=== PATIENT | male | born 1960 | race Caucasian/White ===

== ENCOUNTER → 2018-10-21 10:45 | Day surgery (SDC) | payer BC ==
--- NOTE | 2018-10-19 01:51 | HP ---
CC: Dr. Des Williamson * HISTORY AND PHYSICAL: DATE OF PLANNED ADMISSION AND SURGERY: 10/21/18. HISTORY OF PRESENT ILLNESS: Mr. Chavez is a 58-year-old white male, who is admitted with a distal left ureteral calculus for cystoscopy, left ureteroscopy , laser lithotripsy, and left ureteral stent insertion. Mr. Chavez is a known stone former and had the passed ureteral calculi spontaneously in the past. He presented to my office 3-1/2 months ago with symptoms of left renal colic. At that time, office renal ultrasound showed no renal calculi, but there was mild left hydroureteronephrosis. The diagnosis was left renal colic secondary to a small ureteral calculus. It was decided to manage him conservatively and was he placed on alpha-blockers and increased fluid intake. The patient has been having recurrent episodes of left flank pain. He called the office on 10/17/18 reporting an acute episode of left renal colic. There was no associated fever or chills and no voiding symptoms. Noncontrast CT of the abdomen and pelvis showed mild left hydroureteronephrosis and a 5- mm calculus at the left ureterovesical junction. Past history is relevant for PSA elevation for which he underwent prostate biopsies in 2006, showing prostatitis but no malignancy. Since that time, his PSA has been down and stable with the last value 5 months ago at 2.6. His prostate on rectal exam continues to feel benign. PAST MEDICAL HISTORY AND SYSTEM REVIEW: He is healthy and physically fit and active. He is on Lipitor 20 mg daily and on 1 baby aspirin per day. He denies any cardiac or pulmonary diseases or symptoms. ALLERGIES: He denies any allergies to medications. He reports that VICODIN gives him nausea. PERSONAL HISTORY: He works in construction. He is a non-smoker. FAMILY HISTORY: Relevant for his father who was treated for prostate carcinoma. PHYSICAL EXAMINATION GENERAL: Pleasant, healthy, and fit-looking white male. VITAL SIGNS: Blood pressure 140/90, pulse of 70. LUNGS: Clear. HEART: Regular and rhythmic. No murmurs. ABDOMEN: Soft. No masses. No tenderness. Mild left CVA tenderness. RECTAL EXAM: Had shown a slightly enlarged, but non-suspicious prostate. IMPRESSION: Recurrent episodes of left flank pain that started 3-1/2 months ago , with a 5-mm calculus in the distal left ureter associated with mild left hydronephrosis. PLAN: Considering that the duration of the symptoms, it is unlikely that the stone will pass spontaneously. I gave the patient the option of continued conservative management with alpha- blockers and pain medications versus proceeding with endoscopic stone extraction. The patient feels that the condition has dragged for too long, and he wants to have definitive treatment. The plan therefore is to proceed with cystoscopy, left ureteroscopy, laser lithotripsy, and left ureteral stent placement. I discussed the above plans in detail with the patient. In the interim, he is going to be straining his urine very carefully and if the stone passes to let my office know. [id number] #: [id number] BRANDI
[~2018-10-21 10:45] MED LIST: Acetaminophen TAB* 325 MG PO PRN; Buffered Lidocaine 0.9% SYRIN* 5 ML/SYR SYRINGE INTRADERM ONE; Buffered Lidocaine 0.9% SYRIN* 5 ML/SYR SYRINGE ONE; Dexamethasone IV* 4 MG/ML 1 ML (4 MG) ONE; DiMENhydriNATE IV* 50 MG/ML VIAL IV PUSH PRN; Famotidine IV* 10 MG/ML 2 ML (20 mg) IV ONE; Famotidine IV* 10 MG/ML 2 ML (20 mg) ONE; HYDROmorphone INJ1* 1 MG/ML SYRINGE IV PRN; Ketorolac INJ* 30 MG/ML 1 ML VIAL ONE; Labetalol IV* 5 MG/ML 20 ML VIAL IV PUSH ONE; Labetalol IV* 5 MG/ML 20 ML VIAL ONE; Lidocaine 2% PF * 5 ML VIAL ONE; Midazolam* 1 MG/ML 5 ML VIAL (5 MG) ONE; Naloxone* 0.4 MG/ML 1 ML VIAL IV PRN; Ondansetron INJ* 2 MG/ML VIAL ONE; Propofol* 10 MG/ML 20 ML BTL ONE; cefTRIAXone(*) 2 GM ADDV.VIAL IVPB ONE; fentaNYL* 50 MCG/ML 2 ML VIAL (100 MCG VIAL) ONE; oxyCODONE TAB* 5 MG TAB PO PRN
[2018-10-21 14:10] VITALS: BP 149/91
--- NOTE | 2018-10-22 10:30 | OP ---
CC: Dr. Des Williamson * DATE OF OPERATION: 10/21/18 - [facility] DATE OF : 56. SURGEON: Salty Crandall M.D. PRE-OP DIAGNOSIS: Distal left ureteral calculus. POST-OP DIAGNOSIS: Distal left ureteral calculus. OPERATIVE PROCEDURE: 1. Cystoscopy. 2. Left ureteroscopy and extraction of distal left ureteral calculus (5 to 6 mm ). 3. Left retrograde pyelography and placement of left ureteral stent (6-Latvian). INDICATIONS FOR PROCEDURE: Mr. Chavez is a 58-year-old white male, who presented 3-1/2 months ago with an episode of left renal colic and was noted on office renal ultrasound, to have mild left hydronephrosis. The calculus was not visualized. Because it was assumed that the stone was small, he was managed conservatively. He continued to have on and off episodes of left flank pain. Because of the persistent symptoms, he had a recent CT of the abdomen and pelvis, which showed a 5- mm calculus in the distal left ureter with mild left hydronephrosis. Because of the duration of the patient's symptoms and the fact that it had not passed in 3-1/2 months, and because of the on and off episodes of flank pain, the patient was offered the option of endoscopic stone extraction and he decided to proceed with it. PATHOLOGY AT CYSTOSCOPY: There was a mild meatal stenosis that had to be dilated to introduce the cystoscope. The rest of the urethra looked normal. The prostatic urethra measured about 2.5 cm in length and there was minimal obstruction by the prostate. Examination of the bladder showed normal ureteral orifices. The bladder wall looked normal. There were no suspicious bladder lesions seen. Upon left ureteroscopy, a 5- to 6-mm calculus was noted in the distal left ureter just proximal to the intramural portion of the ureter. The calculus had the gross appearance of a calcium oxalate stone. The calculus had irregular surface, and when engaged with the basket it fragmented into several pieces. Left retrograde pyelography showed no hydronephrosis. DESCRIPTION OF PROCEDURE: After successful general anesthesia, the patient was placed in the lithotomy position and was prepped and draped for a cystoscopy. The urethral meatus and the fossae navicularis had to be gently dilated to allow the introduction of the 22-Latvian cystoscope. The whole urethra was inspected. The bladder was entered and inspected, and the above findings were noted. A Flexible-tip hybrid wire was then introduced into the left orifice and positioned in the area of the renal pelvis. A size 6.5 semi-rigid ureteroscope was then introduced inside the bladder under direct vision. A flexible-tip basket was introduced inside the port of the ureteroscope and its flexible tip was then passed inside the left ureter along side the guidewire. That allowed the atraumatic introduction of the ureteroscope inside the ureter. The calculus was identified. It was engaged in the basket and it broke into several pieces. The stone fragments were then all extracted and the larger one was sent for stone analysis. A left retrograde pyelography was then performed. A size 6-Latvian stent was then placed with a proximal end coiling in the renal pelvis and the distal end coiling inside the bladder. The patient tolerated the procedure well and left the operating room in good condition. The plan is to leave the stent in place for 7 to 10 days. It will be removed in the office under local anesthesia. [id number]/CPS #: [id number] MTDKim
== END | disposition home or self-care (01) ==
LOC: OR 10:45
PROVIDERS: ATTEND Urology
DX: N13.2 Hydronephrosis with renal and ureteral calculous obstruction (principal); E78.5 Hyperlipidemia, unspecified; R03.0 Elevated blood-pressure reading, without diagnosis of hypertension
CPT/HCPCS: 74420; 82365; 88300; C1876; J0696; J1100; J1885; J2250; J2405; J2704; J3010

== ENCOUNTER 2019-09-04 07:56 | Day surgery (SDC) | payer BC ==
[~2019-09-04 07:56] MED LIST changes: -Acetaminophen TAB* 325 MG PO PRN; -Buffered Lidocaine 0.9% SYRIN* 5 ML/SYR SYRINGE INTRADERM ONE; -Buffered Lidocaine 0.9% SYRIN* 5 ML/SYR SYRINGE ONE; +Buffered Lidocaine 1% SYRIN* 1 ML/SYRINGE INTRADERM ONE; +Dexamethasone IV* 4 MG/ML 1 ML (4 MG) IV SLOW PU ONE; -DiMENhydriNATE IV* 50 MG/ML VIAL IV PUSH PRN; -HYDROmorphone INJ1* 1 MG/ML SYRINGE IV PRN; -Ketorolac INJ* 30 MG/ML 1 ML VIAL ONE; -Labetalol IV* 5 MG/ML 20 ML VIAL IV PUSH ONE; -Labetalol IV* 5 MG/ML 20 ML VIAL ONE; +Lactated Ringers 1000 ML Bag* 1,000 ML IV SCH; -Lidocaine 2% PF * 5 ML VIAL ONE; -Midazolam* 1 MG/ML 5 ML VIAL (5 MG) ONE; -Naloxone* 0.4 MG/ML 1 ML VIAL IV PRN; -Ondansetron INJ* 2 MG/ML VIAL ONE; -Propofol* 10 MG/ML 20 ML BTL ONE; -cefTRIAXone(*) 2 GM ADDV.VIAL IVPB ONE; -fentaNYL* 50 MCG/ML 2 ML VIAL (100 MCG VIAL) ONE; -oxyCODONE TAB* 5 MG TAB PO PRN
[2019-09-04] MEDS ORDERED: ceFAZolin 2 GM PREMIX in ORs 2 GM/50 ML BAG ONE (08:13)
[2019-09-04] MEDS ORDERED: ROPIVACAINE 5 MG/ML 30 ML BTL (0.5%) ONE (09:39)
[2019-09-04] MEDS ORDERED: fentaNYL* 50 MCG/ML 5 ML VIAL (250 MCG VIAL) ONE (09:49)
[2019-09-04] MEDS ORDERED: Midazolam* 1 MG/ML 5 ML VIAL (5 MG) ONE (09:49)
[2019-09-04] MEDS ORDERED: Atracurium* 10 MG/ML 10 ML VIAL ONE (09:49)
[2019-09-04] MEDS ORDERED: Propofol* 10 MG/ML 20 ML BTL ONE (09:50)
[2019-09-04] MEDS ORDERED: Ondansetron INJ* 2 MG/ML VIAL ONE (09:50)
[2019-09-04] MEDS ORDERED: Lidocaine 2% PF * 5 ML VIAL ONE (09:50)
[2019-09-04] MEDS ORDERED: Bupivacaine 0.25% SDV* 30 ML ONE (09:55)
[2019-09-04] MEDS ORDERED: methylPREDNISolone ACETATE 80* 80 MG/ML 1 ML VIAL ONE (09:55)
[2019-09-04] MEDS ORDERED: HYDROmorphone INJ1* 1 MG/ML SYRINGE IV PRN (10:37)
[2019-09-04] MEDS ORDERED: Scopolamine 1.5 mg* PATCH TRANSDERM PRN (10:37)
[2019-09-04] MEDS ORDERED: Naloxone* 0.4 MG/ML 1 ML VIAL IV PRN (10:37)
[2019-09-04] MEDS ORDERED: Ondansetron INJ* 2 MG/ML VIAL IV PRN (10:37)
[2019-09-04] MEDS ORDERED: fentaNYL* 50 MCG/ML 2 ML VIAL (100 MCG VIAL) IV PRN (10:37)
[2019-09-04] MEDS ORDERED: oxyCODONE/Acetamin 5/325 MG* TAB PO PRN (10:37)
[2019-09-04] MEDS ORDERED: diPHENhydraMINE IV* 50 MG/ML 1 ml VIAL (BENADRYL) IV PRN (10:37)
[2019-09-04 13:58] VITALS: BP 134/87
--- NOTE | 2019-09-04 23:29 | OP ---
DATE OF SURGERY: 09/04/19 [facility] DATE OF : 56 SURGEON: Larissa Gongora MD. WASH TANK TENDER: KJ Crandall. An assistant general manager was needed for the entirety of the case to help with positioning, retraction, and was utilized throughout all portions of the case. ANESTHESIOLOGIST: Dr. Thompson. ANESTHESIA: General, interscalene block. PRE-OP DIAGNOSIS: Right shoulder full thickness tear of the rotator cuff with bicipital tendinitis. POST-OP DIAGNOSIS: Right shoulder full thickness tear of the rotator cuff with bicipital tendinitis. OPERATIVE PROCEDURES: Right shoulder arthroscopy with: 1. Extensive glenohumeral debridement. 2. Arthroscopic biceps tenodesis. 3. Rotator cuff repair, double-row fashion, of supraspinatus augmented with Regeneten patch. 4. Subacromial decompression with acromioplasty. IMPLANTS: Three Healicoil anchors, 2 MultiFix, and 1 Regeneten patch. INDICATIONS: Manuel Salas is a 59-year-old male who has had persistent shoulder pain for some time. He has failed conservative treatment and elected to proceed with surgical treatment. Risks and benefits were discussed at length including, but not limited to, bleeding, infection, damage to nerves, vessels, and surrounding structures, wound nonhealing, persistent pain, need for further surgery, scarring, stiffness, incomplete relief of symptoms, risks of anesthesia. He has elected to proceed. DESCRIPTION OF PROCEDURE: The patient was greeted in the preoperative area by the attending surgeon. Correct extremity was marked and consent was confirmed. The patient underwent interscalene nerve block by the anesthesiologist, after which he was brought back to the operating suite. He was placed in the supine position on the operating table and underwent general anesthesia and endotracheal intubation after which he was placed in the left lateral decubitus position. All bony prominences were padded, secured with a pegboard. An axillary roll was placed. The right shoulder was then prepped and draped in the usual sterile fashion beginning with chlorhexidine soap, scrub, and alcohol wipe , and a final prep with ChloraPrep. After appropriate surgical pause indicating side, site, procedure, and administration of antibiotics, the standard postero-lateral portal was made sharply with an 11-blade. The scope was introduced into the joint and the joint was examined. There were abundant synovitis that was present. There were grade 0 and 1 changes of the glenohumeral joint. The biceps was visualized and had tearing of the biceps as well as superior labral tearing. The anterior portal was made in an outside-in fashion. There was evidence of full thickness rotator cuff tear, irregular traumatic tear, that was present. A cannula was placed. The shaver was used to debride back the anterior, posterior, and superior labrum. The inferior recess was intact. Attention was then directed to the subacromial space. A decision was made to try and do the biceps arthroscopically. With the scope positioned in the subacromial space, the lateral portal was made in an outside-in fashion. Shaver was used to debride back the abundant synovitis that was present. The undersurface of the acromion was then skeletonized using electrocautery device. The CA ligament was released. There was a prominent AC joint as well. The 4.0 oval simone was used then used to do an acromioplasty as well as coplaning of the distal clavicle because there was a rather large spur. Attention was then directed to the rotator cuff. This was a complex traumatic tear. The remnant was still attached. The shaver was used to debride back the unstable flaps. The electrocautery device was used to expose the greater tuberosity. The 4.0 oval simone was then used to skeletonized the greater tuberosity and the rasp was also used. The biceps was identified and through a separate stab incision a Healicoil anchor was placed and the suture was then passed to the tendon in a locking loop stitch fashion. The biceps was then tenotomized at the insertion and it was then tied using an arthroscopic knot tying technique. The attention was directed to the rotator cuff. The tear edges were again irregular, but they were able to reduced to the footprint. The 2 Healicoil anchors were then placed medially and these Healicoil anchors were loaded with tape for better fixation. The sutures were then passed in a horizontal mattress configuration, beginning anteriorly and then posteriorly. This was then tied down, first beginning with the extra sutures of the biceps anchor, then the remaining sutures. Once these were tied down, this helped to restore the rotator cuff to the footprint, then a decision was made to do a double-row repair to help compress the cuff. One strand from each of the knotted sutures were then passed through an anterolateral MultiFix anchor, then the remaining sutures were passed posteriorly through a posterolateral MultiFix anchor. A decision was made to augment this with a Regeneten patch because the patient was young and this is atraumatic, to augment healing. So, a size medium Regeneten patch was brought into the field and then secured with tendon lay medially and then laterally with PEEK lay to the bone. Final images were obtained. The wounds were copiously irrigated with sterile saline. The portals were then closed with 3-0 nylon. Sterile dressings were applied, Cryo/Cuff was applied, and an UltraSling. He was awoken from anesthesia and transferred to the PACU in stable condition. POSTOPERATIVE PLAN: He will be nonweightbearing and in the sling for 6 weeks. He will be discharged on pain medications. DVT prophylaxis was considered, but was deferred due to no previous personal or family history. I will see him back in 10 to 14 days. [id number]/[facility] #: [id number] BRANDI
== END 2019-09-04 13:56 | disposition home or self-care (01) ==
LOC: OREAST 07:56
PROVIDERS: ATTEND Orthopaedic Surgery
DX: S46.011D Strain of muscle(s) and tendon(s) of the rotator cuff of right shoulder, subsequent encounter (principal); M75.21 Bicipital tendinitis, right shoulder; X58.XXXD Exposure to other specified factors, subsequent encounter; Y92.9 Unspecified place or not applicable; G89.18 Other acute postprocedural pain; I10 Essential (primary) hypertension; Z87.442 Personal history of urinary calculi
CPT/HCPCS: C1713; J0690; J1040; J1100; J2250; J2405; J2704; J2795; J3010; J3490